=== PATIENT | female | born 1970 ===

== ENCOUNTER 2024-02-12 11:43 | Outpatient (CLI) | payer OTHER ==
[~2024-02-12 11:43] MED LIST: ACIDO FOLICO; CARDEZARTAN; HUMIRA 40 MG; METROTEXATE; VIT D 50,000
== END 2024-02-12 11:45 | disposition home or self-care (01) ==
LOC: SONOGRAMA 11:43
PROVIDERS: ATTEND Pathology Anatomic Pathology
DX: C73 Malignant neoplasm of thyroid gland (principal); D34 Benign neoplasm of thyroid gland; E07.89 Other specified disorders of thyroid